=== PATIENT | male | born 1960 | race Caucasian/White ===

== ENCOUNTER 2023-02-26 09:27 | Outpatient (CLI) | payer OTHER, SELFPAY | END 2023-02-26 09:28 | disposition home or self-care (01) | LOC: NFLDREF 02-27 05:54 | PROVIDERS: PCP Family Medicine; Visit Provider Family Medicine | DX: Z00.00 Encounter for general adult medical examination without abnormal findings (principal); E11.9 Type 2 diabetes mellitus without complications; M54.2 Cervicalgia; Z23 Encounter for immunization; E78.00 Pure hypercholesterolemia, unspecified; I25.10 Atherosclerotic heart disease of native coronary artery without angina pectoris; I10 Essential (primary) hypertension; Z86.39 Personal history of other endocrine, nutritional and metabolic disease; R07.9 Chest pain, unspecified; Z12.5 Encounter for screening for malignant neoplasm of prostate | CPT/HCPCS: 80053; 80061; 82043; 82570; 84153 ==

== ENCOUNTER 2024-02-07 09:01 | Outpatient (CLI) | payer OTHER, SELFPAY | END 2024-02-07 09:02 | disposition home or self-care (01) | PROVIDERS: PCP Family Medicine; Visit Provider Family Medicine | DX: E78.00 Pure hypercholesterolemia, unspecified (principal); I10 Essential (primary) hypertension; E11.9 Type 2 diabetes mellitus without complications | CPT/HCPCS: 80053; 80061 ==

== ENCOUNTER 2024-02-12 13:35 | Outpatient (CLI) | payer OTHER, SELFPAY ==
[2024-02-12] MEDS: PERFLUTREN LIPID MICROSPHERES 2 ML VIAL IV (14:33)
[2024-02-12 14:50] VITALS: BP 136/82; PULSE 83; RESP 18
[2024-02-12 14:55] VITALS: BP 136/82; PULSE 83; RESP 18
--- NOTE | 2024-02-12 15:49 | P.STN_ITS ---
Stress Test Note Date Date of test: 02/12/24 Providers Primary care provider: Masood Knowles Stress test physician: Joe Brand Stress Test Note Stress test ordered: Stress Echo Stress test medicine: [facility] Results discussion: Patient is a very nice gentleman who presents here for the above test, after reviewing the cardiac stress test medical history form. 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 the orthotic finish grinding technician did tell me that she thought there was up posterior wall motion abnormality which is consistent with that at rest. Pretest EKG shows normal sinus rhythm, with some ST wave flattening noted laterally and inferiorly. Also Q-waves are noted in AVF. And occasional PVC standard Isra protocol is employed over a time course of 7 minutes 58 seconds, test is terminated due to fatigue, and maximum heart rate was 122, which is slightly sub maximal, likely due to use of beta blockade. blood pressure was 144/88, 9.5 Mets, reviewed the EKG shows some ST wave depression of almost 3 mm in 2 3 and AVF this normalized during recovery. He did not develop any chest pain or any subjective symptoms, other than fatigue Impression: Electrographic portion of stress test with ST wave changes suggestive of ischemia inferiorly. Follow up suggested: Await echo images clinical correlation with these will be needed, these will be read by Cardiology, patient left this testing facility in good condition.
== END 2024-02-12 13:36 | disposition home or self-care (01) ==
LOC: STRESS 13:36
PROVIDERS: PCP Family Medicine; Visit Provider Family Medicine
DX: R07.9 Chest pain, unspecified (principal); I25.10 Atherosclerotic heart disease of native coronary artery without angina pectoris; E11.9 Type 2 diabetes mellitus without complications; E78.00 Pure hypercholesterolemia, unspecified
CPT/HCPCS: 93016; 93325; 93351; Q9957

== ENCOUNTER 2024-11-06 11:00 | Outpatient (CLI) | payer OTHER, SELFPAY | END 2024-11-06 11:01 | disposition home or self-care (01) | PROVIDERS: PCP Family Medicine; Visit Provider Family Medicine | DX: E78.00 Pure hypercholesterolemia, unspecified (principal); E11.9 Type 2 diabetes mellitus without complications; I10 Essential (primary) hypertension; I25.10 Atherosclerotic heart disease of native coronary artery without angina pectoris; Z12.5 Encounter for screening for malignant neoplasm of prostate | CPT/HCPCS: 80053; 80061; 82043; 82570; G0103 ==

== ENCOUNTER 2024-12-15 16:14 | Outpatient (CLI) | payer OTHER, SELFPAY ==
--- NOTE | 2024-12-15 16:45 | CRLHL7_ITS ---
For Patients: As a result of the Century Cures Act, medical imaging exams and procedure reports are released immediately into your electronic medical record. You may view this report before your referring provider. If you have questions, please contact your health care provider. INDICATION: Lung cancer screening. TECHNIQUE: Low-dose noncontrast CT images of the chest. Dose reduction techniques used. COMPARISON: CT chest 06/08/2022. FINDINGS: No focal consolidation, pleural effusion, or pneumothorax. Calcified granuloma right apex. No pulmonary nodules. The heart size is normal. No pericardial effusion. Coronary artery atherosclerotic calcifications. No mediastinal or hilar lymphadenopathy. Limited images through the upper abdomen are unremarkable. Multilevel thoracic spondylosis. Unchanged [id number] chronic upper and mid thoracic compression deformities. No aggressive osseous lesions. IMPRESSION: No lung nodules or masses. Lung rads category 1, negative. Continue annual screening with low-dose chest CT in 12 months. Please note that all CT scans at this facility use dose modulation, iterative reconstruction, and/or weight-based dosing when appropriate to reduce radiation dose to as low as reasonably achievable. Dictated by Jerome Newby MD @ 12/15/2024 7:15:01 PM (Electronically Signed)
== END 2024-12-15 16:15 | disposition home or self-care (01) ==
LOC: CT 16:15
PROVIDERS: PCP Family Medicine; Visit Provider Family Medicine
DX: Z12.2 Encounter for screening for malignant neoplasm of respiratory organs (principal); Z72.0 Tobacco use
CPT/HCPCS: 71271

== ENCOUNTER 2025-02-02 11:44 | Outpatient (CLI) | payer OTHER, SELFPAY | END 2025-02-02 11:45 | disposition home or self-care (01) | LOC: LKVREF 11:45 | PROVIDERS: PCP Family Medicine; Visit Provider Family Medicine | DX: I10 Essential (primary) hypertension (principal); Z95.1 Presence of aortocoronary bypass graft | CPT/HCPCS: 80048 ==

== ENCOUNTER 2025-05-07 08:17 | Outpatient (CLI) | payer OTHER, SELFPAY | END 2025-05-07 08:18 | disposition home or self-care (01) | PROVIDERS: PCP Family Medicine; Visit Provider Family Medicine | DX: E11.9 Type 2 diabetes mellitus without complications (principal); I10 Essential (primary) hypertension; E78.00 Pure hypercholesterolemia, unspecified; I25.10 Atherosclerotic heart disease of native coronary artery without angina pectoris; Z95.1 Presence of aortocoronary bypass graft | CPT/HCPCS: 80061; 80076 ==

== ENCOUNTER 2025-08-07 08:01 | Outpatient (CLI) | payer OTHER, SELFPAY | END 2025-08-07 08:02 | disposition home or self-care (01) | LOC: NFLDREF 08-10 15:59 | PROVIDERS: PCP Family Medicine; Referring Provider Family Medicine; Visit Provider Family Medicine | DX: E78.00 Pure hypercholesterolemia, unspecified (principal); Z95.1 Presence of aortocoronary bypass graft | CPT/HCPCS: 80061; 80076 ==